=== PATIENT | male | born 1980 | race Caucasian/White ===

== ENCOUNTER 2020-04-21 18:40 | Observation (INO) | payer MEDICARE, OTHER ==
[2020-04-21] MEDS ORDERED: BABY ASPIRIN 81 MG CHEW PO ONE (18:52)
--- NOTE | 2020-04-21 18:52 | ERPHSYRPT ---
- History of Present Illness Time Seen by Provider: 04/21/20 18:47 Historian: patient Exam Limitations: no limitations Patient Subjective Stated Complaint: Chest Discomfort Physician History: Patient states that he has a history of dilated cardiomyopathy since 2006. His last ejection fraction was a 45%. Patient taken to the ER for intermittent chest pain since yesterday evening. No shortness of breath or nausea vomiting or fever chills. Timing/Duration: yesterday Activities at Onset: none Quality: aching Location: substernal Chest Pain Radiation: no radiation Severity of Pain-Max: moderate Severity of Pain-Current: mild Modifying Factors: Improves With: nothing Associated Symptoms: denies symptoms Prior Chest Pain/Cardiac Workup: angina Nitro Today/Relief: no nitro taken today Aspirin Treatment Today: 81 mg x 1 Allergies/Adverse Reactions: penicillin G Allergy (Intermediate, Verified 04/21/20 19:11) Home Medications: Aspirin 81 gm Chew [Baby Aspirin 81 mg Chew] 81 mg PO DAILY 06/11/14 [History] Carvedilol [Coreg] 25 mg PO BID 06/11/14 [History] Digoxin [Lanoxin] 125 mcg PO DAILY 06/11/14 [History] Furosemide [Lasix] 20 mg PO DAILY 06/11/14 [History] Losartan Potassium 50 mg PO DAILY 06/11/14 [History] Potassium Chloride 20 Meq [Klor-Con 20 MEQ] 20 meq PO BID 06/11/14 [History] Pravastatin Sodium 10 mg PO DAILY 06/11/14 [History] Amlodipine Besylate 2.5 mg PO DAILY 04/21/20 [History] Hx Tetanus, Diphtheria Vaccination/Date Given: Yes Hx Influenza Vaccination/Date Given: No Hx Pneumococcal Vaccination/Date Given: No Travel Risk - International Travel Have you traveled outside of the country in past 3 weeks: No - Coronavirus Screening Are you exhibiting any of the following symptoms?: No - Review of Systems Constitutional: No Fever, No Chills Eyes: No Symptoms Ears, Nose, & Throat: No Symptoms Respiratory: No Cough, No Dyspnea Cardiac: Chest Pain, No Edema, No Syncope Abdominal/Gastrointestinal: No Abdominal Pain, No Nausea, No Vomiting, No Diarrhea Genitourinary Symptoms: No Dysuria Musculoskeletal: No Back Pain, No Neck Pain Skin: No Rash Neurological: No Dizziness, No Focal Weakness, No Sensory Changes Psychological: No Symptoms Endocrine: No Symptoms All Other Systems: Reviewed and Negative - Past Medical History Pertinent Past Medical History: Yes Neurological History: Migraines ENT History: No Pertinent History Cardiac History: Congestive Heart Failure, High Cholesterol, Other Respiratory History: No Pertinent History Endocrine Medical History: No Pertinent History Musculoskeletal History: No Pertinent History GI Medical History: No Pertinent History History: No Pertinent History Psycho-Social History: Depression Male Reproductive Disorders: No Pertinent History Other Medical History: CARDIOPATHY FROM VIRUS 2005 - Past Surgical History Past Surgical History: Yes Neuro Surgical History: No Pertinent History Cardiac: Internal Defibrillator, Pacemaker Respiratory: No Pertinent History Gastrointestinal: No Pertinent History Genitourinary: No Pertinent History Musculoskeletal: No Pertinent History Male Surgical History: No Pertinent History - Social History Smoking Status: Never smoker Exposure to second hand smoke: No Drug Use: none Patient Lives Alone: No - Nursing Vital Signs Nursing Vital Signs: Initial Vital Signs Temperature 98.8 F 04/21/20 18:59 Pulse Rate 70 04/21/20 18:59 Respiratory Rate 14 04/21/20 18:59 Blood Pressure 176/107 04/21/20 18:59 O2 Sat by Pulse Oximetry 96 04/21/20 18:59 Pain Scale Pain Intensity 3 - Physical Exam General Appearance: no apparent distress, alert Eye Exam: PERRL/EOMI, eyes nml inspection Ears, Nose, Throat Exam: normal ENT inspection, moist mucous membranes Neck Exam: normal inspection, non-tender, supple, full range of motion Respiratory Exam: normal breath sounds, lungs clear, No respiratory distress Cardiovascular Exam: regular rate/rhythm, normal heart sounds Gastrointestinal/Abdomen Exam: soft, No tenderness, No mass Back Exam: normal inspection, No CVA tenderness, No vertebral tenderness Extremity Exam: normal inspection, normal range of motion Neurologic Exam: alert, oriented x 3, cooperative, normal mood/affect, sensation nml, No motor deficits Skin Exam: normal color, warm, dry - Course Nursing assessment & vital signs reviewed: Yes EKG Interpreted by Me: RATE (70), Other (Paced Rhythm) - Radiology Exams Chest X-ray Interpretation: Interpreted by me, No Pneumonia, No Pneumothorax, Other (Nothing acute. Pacemaker in place) Ordered Tests: Active Orders 24 hr Category Date Time Status Package Wrapper STAT Care 04/21/20 18:54 Active EKG-ER Only STAT Care 04/21/20 18:52 Active IV Insertion STAT Care 04/21/20 18:52 Active CHEST 1 VIEW (PORTABLE) Stat Exams 04/21/20 18:54 Taken CBC W DIFF Stat Lab 04/21/20 19:00 Completed CK-Creatinine Phosphokinase Stat Lab 04/21/20 19:00 Completed CMP Stat Lab 04/21/20 19:00 Completed Manual Differential NC Stat Lab 04/21/20 19:00 Completed NT PRO BNP Stat Lab 04/21/20 19:00 Completed PROTIME WITH INR Stat Lab 04/21/20 19:00 Completed PTT Stat Lab 04/21/20 19:00 Completed TROPONIN Q3H Lab 04/21/20 19:00 Completed Transfer Order Routine Transfer 04/21/20 Ordered Medication Summary Discontinued Medications Generic Name Dose Route Start Last Admin Trade Name Freq PRN Reason Stop Dose Admin Acetaminophen 500 mg 04/21/20 20:18 04/21/20 20:23 Tylenol Extra Strength 500 Mg PO 04/21/20 20:19 500 mg STAT STA Administration Acetaminophen Confirm 04/21/20 20:22 Tylenol Extra Strength 500 Mg Administered 04/21/20 20:23 Dose 500 mg .ROUTE .STK-MED ONE Aspirin 162 mg 04/21/20 18:52 04/21/20 19:11 Baby Aspirin 81 Mg Chew PO 04/21/20 18:53 162 mg STAT ONE Administration Nitroglycerin 1 gm 04/21/20 19:14 04/21/20 19:28 Nitro-Bid 2% Ud Packets TOP 04/21/20 19:15 1 gm STAT ONE Administration Nitroglycerin Confirm 04/21/20 19:27 Nitro-Bid 2% Ud Packets Administered 04/21/20 19:28 Dose 1 gm .ROUTE .STK-MED ONE Lab/Rad Data: Laboratory Result Diagrams 04/21/20 19:00 04/21/20 19:00 Laboratory Results 04/21/20 04/21/20 04/21/20 Range/Units 19:00 19:00 19:00 WBC (4.0-10.5) K/mm3 RBC (4.1-5.6) M/mm3 Hgb (12.5-18.0) gm/dl Hct (42-50) % MCV (78-100) fl MCH (26-32) pg MCHC (32-36) g/dl RDW (11.5-14.0) % Plt Count (150-450) K/mm3 MPV (7.5-11.0) fl PT 14.1 H (8.83-12.87) SECONDS INR 1.25 (0.8-3.0) APTT 31.7 (24.1-36.1) SECONDS Sodium 136 L (137-145) mmol/L Potassium 3.5 (3.5-5.1) mmol/L Chloride 102 (98-107) mmol/L Carbon Dioxide 28 (22-30) mmol/L Anion Gap 10.2 (5-15) MEQ/L BUN 18 (9-20) mg/dL Creatinine 1.11 (0.66-1.25) mg/dL Estimated GFR > 60.0 ML/MIN Glucose 106 (74-106) mg/dL Calcium 9.3 (8.4-10.2) mg/dL Total Bilirubin 0.40 (0.2-1.3) mg/dL AST 25 (17-59) U/L ALT 39 (0-50) U/L Alkaline Phosphatase 136 H (38-126) U/L Creatine Kinase 117 (55-170) U/L Troponin I < 0.012 (0.000-0.034) ng/mL NT-Pro-B Natriuret Pep 76.0 (0-450) pg/mL Serum Total Protein 7.7 (6.3-8.2) g/dL Albumin 4.2 (3.5-5.0) g/dL 04/21/20 Range/Units 19:00 WBC 11.2 H (4.0-10.5) K/mm3 RBC 4.95 (4.1-5.6) M/mm3 Hgb 15.7 (12.5-18.0) gm/dl Hct 46.8 (42-50) % MCV 94.5 (78-100) fl MCH 31.7 (26-32) pg MCHC 33.5 (32-36) g/dl RDW 13.3 (11.5-14.0) % Plt Count 307 (150-450) K/mm3 MPV 9.8 (7.5-11.0) fl PT (8.83-12.87) SECONDS INR (0.8-3.0) APTT (24.1-36.1) SECONDS Sodium (137-145) mmol/L Potassium (3.5-5.1) mmol/L Chloride (98-107) mmol/L Carbon Dioxide (22-30) mmol/L Anion Gap (5-15) MEQ/L BUN (9-20) mg/dL Creatinine (0.66-1.25) mg/dL Estimated GFR ML/MIN Glucose (74-106) mg/dL Calcium (8.4-10.2) mg/dL Total Bilirubin (0.2-1.3) mg/dL AST (17-59) U/L ALT (0-50) U/L Alkaline Phosphatase (38-126) U/L Creatine Kinase (55-170) U/L Troponin I (0.000-0.034) ng/mL NT-Pro-B Natriuret Pep (0-450) pg/mL Serum Total Protein (6.3-8.2) g/dL Albumin (3.5-5.0) g/dL - Progress Progress: improved Air Movement: good Blood Culture(s) Obtained: No Antibiotics given: No Discussed with : Vijay Will see patient in: hospital (observation) Counseled pt/family regarding: diagnosis - Departure Departure Disposition: Observation Clinical Impression: Chest pain Condition: Good Critical Care Time: No Referrals: BLUE ROMERO NP [Primary Care Provider] -
[2020-04-21 19:12] LABS: Hematocrit 46.8 % (42-50); Hemoglobin 15.7 gm/dl (12.5-18.0); Mean Cell Volume 94.5 fl (78-100); Mean Corpuscular Hemoglobin 31.7 pg (26-32); Mean Corpuscular Hgb Concent. 33.5 g/dl (32-36); Mean Platelet Volume 9.8 fl (7.5-11.0); Platelet Count 307 K/mm3 (150-450); Red Blood Count 4.95 M/mm3 (4.1-5.6); Red Cell Distribution Width 13.3 % (11.5-14.0); White Blood Count 11.2 K/mm3 (4.0-10.5)
[2020-04-21 19:14] LABS: INR 1.25 (0.8-3.0); PROTIME 14.1 SECONDS (8.83-12.87)
[2020-04-21] MEDS ORDERED: NITRO-BID 2% UD PACKETS TOP ONE (19:14)
[2020-04-21 19:16] LABS: PTT 31.7 SECONDS (24.1-36.1)
[2020-04-21] MEDS ORDERED: NITRO-BID 2% UD PACKETS ONE (19:27)
[2020-04-21 19:28] LABS: ALBUMIN 4.2 g/dL (3.5-5.0); ALKALINE PHOSPHATASE 136 U/L (38-126); ANION GAP 10.2 MEQ/L (5-15); BLOOD UREA NITROGEN 18 mg/dL (9-20); CHLORIDE 102 mmol/L (98-107); CK-Creatinine Phosphokinase 117 U/L (55-170); Calcium 9.3 mg/dL (8.4-10.2); Carbon Dioxide 28 mmol/L (22-30); Creatinine 1 1.11 mg/dL (0.66-1.25); Glucose 106 mg/dL (74-106); Potassium 3.5 mmol/L (3.5-5.1); SGOT/AST 25 U/L (17-59); SGPT/ALT 39 U/L (0-50); SODIUM 136 mmol/L (137-145); Total Protein 7.7 g/dL (6.3-8.2)
[2020-04-21] MEDS ORDERED: TYLENOL EXTRA STRENGTH 500 MG PO STA (20:18)
[2020-04-21] MEDS ORDERED: TYLENOL EXTRA STRENGTH 500 MG ONE (20:22)
[2020-04-21] MEDS ORDERED: APRESOLINE 20 MG/ML INJ IV PRN (21:13)
[2020-04-21] MEDS: COREG 12.5 MG PO SCH (21:55)
[2020-04-21] MEDS ORDERED: Cozaar 50 MG PO SCH (22:00)
[2020-04-21] MEDS ORDERED: Zocor 10MG PO SCH (22:00)
[2020-04-21 23:19] LABS: Eosinophil 2 % (0.00-3.0); Lymphocytes 37 % (24-44); Monocyte 1 % (0.0-12.0); Neutrophils 60 % (36.-66.); Total Cells Counted 100
[2020-04-21 23:20] LABS: Platelet Estimate NORMAL (NORMAL)
[2020-04-22] MEDS: TYLENOL 325 MG PO PRN ×2 (03:33→08:09)
--- NOTE | 2020-04-22 08:29 | PCM.HP ---
History of Present Illness - Chief Complaint Chief Complaint: Chest Pain History of Present Illness: is a 39 year old male with a known history of cardiomyopathy, follows with Dr Lawson, states he was disabled in the past, released to return to work a little over 1 year ago when EF had improved to 45%. He awoke very early yesterday morning from sleep with headache and burning sensation in his chest, he also felt nauseated. his bp was elevated on arrival to the ER, he is currently pain free, has a headache from nitro paste he believes. has no history of prior stenting, last heart cath was quite a while back but he is unable to further elaborate. no swelling in the legs, no pnd or orthopnea. - Review of Systems Constitutional: No Fever, No Chills Respiratory: No Cough, No Short Of Breath Cardiac: Chest Pain (resolved) Abdominal/Gastrointestinal: Nausea (resolved) Skin: No Rash Neurological: No Dizziness, No Focal Weakness, No Sensory Changes All Other Systems: Reviewed and Negative Medications & Allergies Home Medications: Home Medication List Aspirin 81 gm Chew [Baby Aspirin 81 mg Chew] 81 mg PO DAILY 06/11/14 [History Confirmed 04/21/20] Carvedilol [Coreg] 25 mg PO BID 06/11/14 [History Confirmed 04/21/20] Digoxin [Lanoxin] 125 mcg PO DAILY 06/11/14 [History Confirmed 04/21/20] Furosemide [Lasix] 20 mg PO DAILY 06/11/14 [History Confirmed 04/21/20] Losartan Potassium 50 mg PO HS 06/11/14 [History Confirmed 04/21/20] Potassium Chloride 20 Meq [Klor-Con 20 MEQ] 20 meq PO DAILY 06/11/14 [History Confirmed 04/21/20] Pravastatin Sodium 10 mg PO HS 06/11/14 [History Confirmed 04/21/20] Amlodipine Besylate 2.5 mg PO DAILY 04/21/20 [History Confirmed 04/21/20] Allergies/Adverse Reactions: Allergies Allergy/AdvReac Type Severity Reaction Status Date / Time penicillin G Allergy Intermediate Verified 04/21/20 19:11 - Past Medical History Past Medical History: Yes Neurological History: Migraines ENT History: No Pertinent History Cardiac History: Congestive Heart Failure, High Cholesterol, Other Respiratory History: No Pertinent History Endocrine Medical History: No Pertinent History Musculoskelatal History: No Pertinent History GI Medical History: No Pertinent History History: No Pertinent History Pyscho-Social History: Depression Male Reproductive Disorders: No Pertinent History Comment: CARDIOPATHY FROM VIRUS 2005 - Past Surgical History Past Surgical History: Yes Neuro Surgical History: No Pertinent History Cardiac History: Internal Defibrillator, Pacemaker Respiratory Surgery: No Pertinent History GI Surgical History: No Pertinent History Genitourinary Surgical Hx: No Pertinent History Musculskeletal Surgical Hx: No Pertinent History Male Surgical History: No Pertinent History - Social History Smoking Status: Never smoker Exposure to second hand smoke: No Alcohol: Daily Drug Use: none - Physical Exam Vital Signs: Vital Signs - 24 hr Temp Pulse Resp BP Pulse Ox 04/22/20 07:18 98.6 F 70 18 103/55 94 L 04/22/20 04:05 97.7 F 71 20 106/55 94 L 04/21/20 23:44 98.4 F 79 18 105/54 97 04/21/20 20:40 98.7 F 72 22 147/81 96 04/21/20 20:00 70 14 127/89 95 04/21/20 19:44 71 12 151/97 97 04/21/20 18:59 98.8 F 70 14 176/107 96 General Appearance: no apparent distress, obese Neurologic Exam: alert, oriented x 3, cooperative Respiratory Exam: normal breath sounds, lungs clear, No respiratory distress Cardiovascular Exam: regular rate/rhythm, normal heart sounds, normal peripheral pulses Gastrointestinal/Abdomen Exam: soft, normal bowel sounds, No tenderness, No mass Extremity Exam: normal inspection, normal range of motion, pelvis stable Results - Labs Lab/Micro Results: Lab Results-Last 24 Hours 04/21/20 04/21/20 04/21/20 Range/Units 19:00 19:00 19:00 WBC 11.2 H (4.0-10.5) K/mm3 RBC 4.95 (4.1-5.6) M/mm3 Hgb 15.7 (12.5-18.0) gm/dl Hct 46.8 (42-50) % MCV 94.5 (78-100) fl MCH 31.7 (26-32) pg MCHC 33.5 (32-36) g/dl RDW 13.3 (11.5-14.0) % Plt Count 307 (150-450) K/mm3 MPV 9.8 (7.5-11.0) fl Segmented Neutrophils 60 (36.-66.) % Lymphocytes (Manual) 37 (24-44) % Monocytes (Manual) 1 (0.0-12.0) % Eosinophils (Manual) 2 (0.00-3.0) % Platelet Estimate NORMAL (NORMAL) RBC Morphology NORMAL PT 14.1 H (8.83-12.87) SECONDS INR 1.25 (0.8-3.0) APTT 31.7 (24.1-36.1) SECONDS Sodium 136 L (137-145) mmol/L Potassium 3.5 (3.5-5.1) mmol/L Chloride 102 (98-107) mmol/L Carbon Dioxide 28 (22-30) mmol/L Anion Gap 10.2 (5-15) MEQ/L BUN 18 (9-20) mg/dL Creatinine 1.11 (0.66-1.25) mg/dL Estimated GFR > 60.0 ML/MIN Glucose 106 (74-106) mg/dL Calcium 9.3 (8.4-10.2) mg/dL Total Bilirubin 0.40 (0.2-1.3) mg/dL AST 25 (17-59) U/L ALT 39 (0-50) U/L Alkaline Phosphatase 136 H (38-126) U/L Creatine Kinase 117 (55-170) U/L Troponin I (0.000-0.034) ng/mL NT-Pro-B Natriuret Pep 76.0 (0-450) pg/mL Serum Total Protein 7.7 (6.3-8.2) g/dL Albumin 4.2 (3.5-5.0) g/dL 04/21/20 04/21/20 04/21/20 Range/Units 19:00 21:00 23:53 WBC (4.0-10.5) K/mm3 RBC (4.1-5.6) M/mm3 Hgb (12.5-18.0) gm/dl Hct (42-50) % MCV (78-100) fl MCH (26-32) pg MCHC (32-36) g/dl RDW (11.5-14.0) % Plt Count (150-450) K/mm3 MPV (7.5-11.0) fl Segmented Neutrophils (36.-66.) % Lymphocytes (Manual) (24-44) % Monocytes (Manual) (0.0-12.0) % Eosinophils (Manual) (0.00-3.0) % Platelet Estimate (NORMAL) RBC Morphology PT (8.83-12.87) SECONDS INR (0.8-3.0) APTT (24.1-36.1) SECONDS Sodium (137-145) mmol/L Potassium (3.5-5.1) mmol/L Chloride (98-107) mmol/L Carbon Dioxide (22-30) mmol/L Anion Gap (5-15) MEQ/L BUN (9-20) mg/dL Creatinine (0.66-1.25) mg/dL Estimated GFR ML/MIN Glucose (74-106) mg/dL Calcium (8.4-10.2) mg/dL Total Bilirubin (0.2-1.3) mg/dL AST (17-59) U/L ALT (0-50) U/L Alkaline Phosphatase (38-126) U/L Creatine Kinase (55-170) U/L Troponin I < 0.012 < 0.012 < 0.012 (0.000-0.034) ng/mL NT-Pro-B Natriuret Pep (0-450) pg/mL Serum Total Protein (6.3-8.2) g/dL Albumin (3.5-5.0) g/dL - Radiology Impressions Radiology Exams & Impressions: Radiology Procedures Category Date Time Status CHEST 1 VIEW (PORTABLE) Stat Exams 04/21/20 18:54 Taken ECHO W/2D AND DOPPLER [US] Routine Exams 04/22/20 Ordered Assessment/Plan (1) Chest pain Current Visit: Yes Status: Acute Assessment & Plan: PR ruled out, will consult with [facility] regarding disposition. on beta al, arb, bp well controlled and receiving asa and statin therapy. Code(s): R07.9 - CHEST PAIN, UNSPECIFIED (2) Dilated cardiomyopathy Current Visit: Yes Status: Acute Assessment & Plan: echo pending, cardiology consult pending. Code(s): I42.0 - DILATED CARDIOMYOPATHY
--- NOTE | 2020-04-22 08:41 | XRAY ---
Indication: Chest pain. Comparison: July 22, 2016. Portable apical lordotic chest again demonstrates normal heart and lungs with incidental left AICD. Bony thorax intact with mild degenerative changes. No new/acute findings.
[2020-04-22] MEDS: COREG 12.5 MG PO SCH (09:17)
[2020-04-22] MEDS ORDERED: Lanoxin 0.125MG TABLET PO SCH (10:30)
[2020-04-22] MEDS ORDERED: LASIX 20 MG PO SCH (10:30)
[2020-04-22] MEDS ORDERED: ECOTRIN 81 MG PO SCH (10:30)
[2020-04-22] MEDS ORDERED: Klor Con 10 MEQ PO SCH (10:45)
[2020-04-22] MEDS ORDERED: NORVASC 5 MG PO SCH (11:00)
[2020-04-22 11:48] VITALS: O2SAT 96
[2020-04-22 16:20] VITALS: BP 126/67; PULSE 70
--- NOTE | 2020-04-22 17:11 | PCM.DCORD ---
- Discharge Disposition: Home, Self-Care Condition: Good Prescriptions: Continue Aspirin 81 gm Chew [Baby Aspirin 81 mg Chew] 81 mg PO DAILY Losartan Potassium 50 mg PO HS Furosemide [Lasix] 20 mg PO DAILY Carvedilol [Coreg] 25 mg PO BID Pravastatin Sodium 10 mg PO HS Digoxin [Lanoxin] 125 mcg PO DAILY Potassium Chloride 20 Meq [Klor-Con 20 MEQ] 20 meq PO DAILY Amlodipine Besylate 2.5 mg PO DAILY Follow up with: BLUE ROMERO NP [Primary Care Provider] - 1 Week
[2020-04-23] MEDS ORDERED: BABY ASPIRIN 81 MG CHEW PO SCH (10:00)
[2020-04-23] MEDS ORDERED: NON-FORMULARY ITEM (Amlodipine Besylate [Amlodipine Besylate] 2.5 MG) PO SCH (10:00)
[2020-04-23] MEDS ORDERED: NON-FORMULARY ITEM (Potassium Chloride 20 Meq [Klor-Con 20 Meq] 20 MEQ) PO SCH (10:00)
--- NOTE | 2020-04-23 12:07 | ECHO ---
DATE OF PROCEDURE: 04/22/2020 CLINICAL INFORMATION: Chest pain and history of cardiomyopathy. The M-mode 2D, and Doppler echocardiogram including color flow Doppler shows the left ventricle to be at the upper limits of normal being 5.6 cm. There is no thrombus present. The septal wall thickness is increased at 1.3 cm. The left ventricular posterior wall thickness is increased at 1.6 cm. The left ventricular ejection fraction is calculated to be 55%. The contractility of the left ventricle is normal. There is no thrombus noted. The right ventricle is grossly normal. There is suggestion of a right ventricular electrode present. The left atrium is normal at 3.5 cm. The interatrial septum is intact. The right atrium is normal. The aortic valve opens well and is trileaflet. There is no aortic regurgitation. There is mitral valve leaflet thickening associated with mild mitral regurgitation. There is mild tricuspid regurgitation. The right ventricular systolic pressure is normal at 27 mm of Mercury. The pulmonic valve is not well visualized. The aortic root is normal at 3.8 cm. There is no pericardial effusion present. IMPRESSION: 1) NORMAL CONTRACTILITY OF THE LEFT VENTRICLE. 2) MODERATE ASYMMETRIC LEFT VENTRICULAR HYPERTROPHY. 3) MILD MITRAL REGURGITATION. 4) MILD TRICUSPID REGURGITATION. 5) NORMAL RIGHT VENTRICULAR SYSTOLIC PRESSURE. 6) POSSIBLE RIGHT VENTRICULAR ELECTRODE.
== END 2020-04-22 17:42 | disposition home or self-care (01) ==
LOC: ED 18:40 → MED SURG 20:34
PROVIDERS: ADMIT Family Medicine; ATTEND Family Medicine
DX: R07.9 Chest pain, unspecified (principal); I42.0 Dilated cardiomyopathy; R51 Headache; E78.00 Pure hypercholesterolemia, unspecified; Z79.899 Other long term (current) drug therapy
CPT/HCPCS: 36000; 36415; 71045; 80053; 82550; 83880; 84484; 85025; 85610; 85730; 93005; 93041; 93268; 93306; 95806; 99285; G0378; Q3014; A9270-GY; G0398

== ENCOUNTER 2021-05-15 13:44 | Observation (INO) | payer BC, OTHER ==
[2021-05-15] MEDS ORDERED: Sodium Chloride 0.9% 1000 ML 1,000 ML IV STA (14:00)
[2021-05-15] MEDS ORDERED: Sodium Chloride 0.9% 1000 ML 1,000 ML ONE (14:23)
--- NOTE | 2021-05-15 14:26 | XRAY ---
Indication: Chest pain. Comparison: April 21, 2020. Portable chest remains clear. Heart now borderline enlarged again with left AICD. Bony thorax intact with mild degenerative changes. No acute findings.
[2021-05-15 14:38] LABS: Hematocrit 47.3 % (42-50); Hemoglobin 15.7 gm/dl (12.5-18.0); Mean Cell Volume 92.9 fl (78-100); Mean Corpuscular Hemoglobin 30.8 pg (26-32); Mean Corpuscular Hgb Concent. 33.2 g/dl (32-36); Mean Platelet Volume 9.9 fl (7.5-11.0); Platelet Count 327 K/mm3 (150-450); Red Blood Count 5.09 M/mm3 (4.1-5.6); Red Cell Distribution Width 13.6 % (11.5-14.0); White Blood Count 12.5 K/mm3 (4.0-10.5)
--- NOTE | 2021-05-15 14:38 | ERPHSYRPT ---
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 reports she noticed the pt attempting to urinate in the closet after fall and was extremely disoriented. A&Ox3 on arrival. flat affect. denies pain. is on bl ood thinners and unsure if he lost consciousness during fall but is confused on events following fall. Physician History: Patient is a 41-year-old male presents to our ED for evaluation of confusion and fall. Patient states he went to work early this morning. Patient came out of work. Patient had a few beers and went to sleep at approximately 10 AM. Just after 1 PM heard a loud fall and found patient on the floor in his bedroom near the bed. Patient was confused. Patient presents to our ED at this time. Patient has a history of cardiomyopathy. He currently has a pacemaker. Patient states that his blood pressure has been running high. 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 Patient currently feels well. He denies pain. No neck pain. Cervical spine cleared clinically. Symptoms are moderate in intensity. No specific worsening improving factors. at bedside. They voiced no other complaints or concerns at this time. Timing/Duration: today Severity: moderate Modifying Factors: Improves With: nothing Associated Symptoms: No nausea, No vomiting, No heartburn, No diaphoresis, No chest pain, No headaches, No seizure, No weakness Allergies/Adverse Reactions: penicillin G Allergy (Intermediate, Verified 04/21/20 19:11) Home Medications: Aspirin 81 gm Chew [Baby Aspirin 81 mg Chew] 81 mg PO DAILY 06/11/14 [History] Carvedilol [Coreg] 25 mg PO BID 06/11/14 [History] Digoxin [Lanoxin] 125 mcg PO DAILY 06/11/14 [History] Furosemide [Lasix] 40 mg PO DAILY 06/11/14 [History] Losartan Potassium 100 mg PO HS 06/11/14 [History] Potassium Chloride 20 Meq [Klor-Con 20 MEQ] 20 meq PO DAILY 06/11/14 [History] Pravastatin Sodium 40 mg PO HS 06/11/14 [History] Paroxetine HCl 20 mg [Paxil 20 MG] 20 mg PO DAILY 05/15/21 [History] Hx Tetanus, Diphtheria Vaccination/Date Given: Yes Hx Influenza Vaccination/Date Given: No Hx Pneumococcal Vaccination/Date Given: No Immunizations Up to Date: No Travel Risk - International Travel Have you traveled outside of the country in past 3 weeks: No - Coronavirus Screening Are you exhibiting any of the following symptoms?: No Close contact with a COVID-19 positive Pt in past 14-21 Days: No - Vaccine Status Have you recieved a Covid-19 vaccination: Yes [employer]: Moderna - Vaccination Dates Date of 2cond Vaccination (if applicable): unkn - Review of Systems Constitutional: No Symptoms, No Fever, No Chills Eyes: No Symptoms Ears, Nose, & Throat: No Symptoms Respiratory: No Symptoms, No Cough, No Dyspnea Cardiac: No Symptoms, No Chest Pain, No Edema, No Syncope Abdominal/Gastrointestinal: No Symptoms, No Abdominal Pain, No Nausea, No Vomiting, No Diarrhea Genitourinary Symptoms: No Symptoms, No Dysuria Musculoskeletal: No Symptoms, No Back Pain, No Neck Pain Skin: No Symptoms, No Rash Neurological: No Symptoms, No Dizziness, No Focal Weakness, No Sensory Changes Psychological: No Symptoms Endocrine: No Symptoms Hematologic/Lymphatic: No Symptoms Immunological/Allergic: No Symptoms All Other Systems: Reviewed and Negative - Past Medical History Pertinent Past Medical History: Yes Neurological History: Migraines ENT History: No Pertinent History Cardiac History: Congestive Heart Failure, High Cholesterol, Other Respiratory History: No Pertinent History Endocrine Medical History: No Pertinent History Musculoskeletal History: No Pertinent History GI Medical History: No Pertinent History History: No Pertinent History Psycho-Social History: Depression Male Reproductive Disorders: No Pertinent History Other Medical History: CARDIOPATHY FROM VIRUS 2005 - Past Surgical History Past Surgical History: Yes Neuro Surgical History: No Pertinent History Cardiac: Internal Defibrillator, Pacemaker Respiratory: No Pertinent History Gastrointestinal: No Pertinent History Genitourinary: No Pertinent History Musculoskeletal: No Pertinent History Male Surgical History: No Pertinent History - Social History Smoking Status: Never smoker Exposure to second hand smoke: No Drug Use: none Patient Lives Alone: No - Nursing Vital Signs Nursing Vital Signs: Initial Vital Signs Temperature 98.0 F 05/15/21 13:47 Pulse Rate 70 05/15/21 13:47 Respiratory Rate 15 05/15/21 13:47 Blood Pressure 137/94 05/15/21 13:47 O2 Sat by Pulse Oximetry 94 L 05/15/21 13:47 Pain Scale Pain Intensity 0 - Physical Exam General Appearance: no apparent distress, alert Eye Exam: PERRL/EOMI, eyes nml inspection Ears, Nose, Throat Exam: normal ENT inspection, TMs normal, pharynx normal, moist mucous membranes Neck Exam: normal inspection, non-tender, supple, full range of motion Respiratory Exam: normal breath sounds, lungs clear, No respiratory distress Cardiovascular Exam: regular rate/rhythm, normal heart sounds, normal peripheral pulses Gastrointestinal/Abdomen Exam: soft, normal bowel sounds, No tenderness, No mass Back Exam: normal inspection, normal range of motion, No CVA tenderness, No vertebral tenderness Extremity Exam: normal inspection, normal range of motion, pelvis stable Neurologic Exam: alert, oriented x 3, cooperative, normal mood/affect, nml cerebellar function, nml station & gait, sensation nml, No motor deficits Skin Exam: normal color, warm, dry, No rash Lymphatic Exam: No adenopathy SpO2 Interpretation: normal SpO2: 95 O2 Delivery: Room Air - Course Nursing assessment & vital signs reviewed: Yes EKG Interpreted by Me: RATE (70 biventricular paced rhythm.) - Radiology Exams Chest X-ray Interpretation: Teleradiologist Report (Cardiomegaly otherwise unre markable chest x-ray) - CT Exams Head CT Interpretation: Tele-radiologist Report (No acute intracranial process. 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 Care 05/15/21 14:01 Active Clean Catch Urine Specimen STAT Care 05/15/21 14:00 Active EKG-ER Only STAT Care 05/15/21 14:00 Active IV Insertion STAT Care 05/15/21 14:00 Active Pulse Oximetry (ED) STAT Care 05/15/21 14:00 Active CHEST 1 VIEW (PORTABLE) Stat Exams 05/15/21 14:[address] ANGIOGRAPHY NECK [CT] Routine Exams 05/15/21 14:41 Completed CTA HEAD W AND/OR WO CONTRAST [CT] Stat Exams 05/15/21 14:34 Completed HEAD WITHOUT CONTRAST [CT] Routine Exams 05/15/21 16:19 Taken CBC W DIFF Stat Lab 05/15/21 14:15 Completed CMP Stat Lab 05/15/21 14:15 Completed ETHYL ALCOHOL Stat Lab 05/15/21 14:15 Completed MAGNESIUM Stat Lab 05/15/21 14:15 Completed Manual Differential NC Stat Lab 05/15/21 14:15 Completed TROPONIN Q3H Lab 05/15/21 14:15 Completed TROPONIN Q3H Lab 05/15/21 18:12 Completed TROPONIN Q3H Lab 05/15/21 20:36 Received TROPONIN Q3H Lab 05/15/21 23:15 Ordered TROPONIN Q3H Lab 05/16/21 02:15 Ordered UA W/RFX UR CULTURE Stat Lab 05/15/21 16:15 Completed Urine Triage Profile Stat Lab 05/15/21 16:15 Completed Transfer Order Routine Transfer 05/15/21 Ordered Medication Summary Discontinued Medications Generic Name Dose Route Start Last Admin Trade Name Freq PRN Reason Stop Dose Admin Sodium Chloride 1,000 mls @ 999 mls/hr 05/15/21 14:00 05/15/21 15:26 Sodium Chloride 0.9% 1000 Ml IV 05/15/21 15:00 Infused .Q1H1M STA Infusion Sodium Chloride Confirm 05/15/21 14:23 Sodium Chloride 0.9% 1000 Ml Administered 05/15/21 14:24 Dose 1,000 mls @ ud .ROUTE .STK-MED ONE Lab/Rad Data: Laboratory Result Diagrams 05/15/21 14:15 05/15/21 14:15 Laboratory Results 05/15/21 05/15/21 05/15/21 Range/Units 19:41 18:12 16:15 WBC (4.0-10.5) K/mm3 RBC (4.1-5.6) M/mm3 Hgb (12.5-18.0) gm/dl Hct (42-50) % MCV (78-100) fl MCH (26-32) pg MCHC (32-36) g/dl RDW (11.5-14.0) % Plt Count (150-450) K/mm3 MPV (7.5-11.0) fl Segmented Neutrophils (36.-66.) % Band Neutrophils (0.0-2.0) % Lymphocytes (Manual) (24-44) % Monocytes (Manual) (0.0-12.0) % Eosinophils (Manual) (0.00-3.0) % Metamyelocytes % Atypical Lymphocytes % Platelet Estimate (NORMAL) RBC Morphology Sodium (137-145) mmol/L Potassium (3.5-5.1) mmol/L Chloride (98-107) mmol/L Carbon Dioxide (22-30) mmol/L Anion Gap (5-15) MEQ/L BUN (9-20) mg/dL Creatinine (0.66-1.25) mg/dL Estimated GFR ML/MIN Glucose (74-106) mg/dL Calcium (8.4-10.2) mg/dL Magnesium (1.6-2.3) mg/dL Total Bilirubin (0.2-1.3) mg/dL AST (17-59) U/L ALT (0-50) U/L Alkaline Phosphatase (38-126) U/L Troponin I < 0.012 (0.000-0.034) ng/mL Serum Total Protein (6.3-8.2) g/dL Albumin (3.5-5.0) g/dL Urine Color (YELLOW) Urine Appearance (CLEAR) Urine pH (5-6) Ur Specific Allison (1.005-1.025) Urine Protein (Negative) Urine Ketones (NEGATIVE) Urine Blood (0-5) Vishal/ul Urine Nitrite (NEGATIVE) Urine Bilirubin (NEGATIVE) Urine Urobilinogen (0-1) mg/dL Ur Leukocyte Esterase (NEGATIVE) Urine WBC (Auto) (0-5) /HPF Urine RBC (Auto) (0-2) /HPF Urine Culture Reflexed (NO) Urine Glucose (NEGATIVE) mg/dL Urine Opiates Level NEGATIVE (NEGATIVE) Ur Methadone NEGATIVE (NEGATIVE) Urine Barbiturates NEGATIVE (NEGATIVE) Ur Phencyclidine (PCP) NEGATIVE (NEGATIVE) Urine Amphetamine NEGATIVE (NEGATIVE) U Benzodiazepine Level NEGATIVE (NEGATIVE) Urine Cocaine NEGATIVE (NEGATIVE) Urine Marijuana (THC) NEGATIVE (NEGATIVE) Ethyl Alcohol (0-10) mg/dL SARS-CoV-2 (PCR) NEGATIVE (NEGATIVE) 05/15/21 05/15/21 05/15/21 Range/Units 16:15 14:15 14:15 WBC (4.0-10.5) K/mm3 RBC (4.1-5.6) M/mm3 Hgb (12.5-18.0) gm/dl Hct (42-50) % MCV (78-100) fl MCH (26-32) pg MCHC (32-36) g/dl RDW (11.5-14.0) % Plt Count (150-450) K/mm3 MPV (7.5-11.0) fl Segmented Neutrophils (36.-66.) % Band Neutrophils (0.0-2.0) % Lymphocytes (Manual) (24-44) % Monocytes (Manual) (0.0-12.0) % Eosinophils (Manual) (0.00-3.0) % Metamyelocytes % Atypical Lymphocytes % Platelet Estimate (NORMAL) RBC Morphology Sodium 144 (137-145) mmol/L Potassium 4.1 (3.5-5.1) mmol/L Chloride 108 H (98-107) mmol/L Carbon Dioxide 22 (22-30) mmol/L Anion Gap 18.5 H (5-15) MEQ/L BUN 17 (9-20) mg/dL Creatinine 0.98 (0.66-1.25) mg/dL Estimated GFR > 60.0 ML/MIN Glucose 89 (74-106) mg/dL Calcium 9.3 (8.4-10.2) mg/dL Magnesium 2.5 H (1.6-2.3) mg/dL Total Bilirubin 0.40 (0.2-1.3) mg/dL AST 30 (17-59) U/L ALT 41 (0-50) U/L Alkaline Phosphatase 98 (38-126) U/L Troponin I < 0.012 (0.000-0.034) ng/mL Serum Total Protein 8.2 (6.3-8.2) g/dL Albumin 4.6 (3.5-5.0) g/dL Urine Color STRAW (YELLOW) Urine Appearance CLEAR (CLEAR) Urine pH 6.0 (5-6) Ur Specific Allison 1.023 (1.005-1.025) Urine Protein NEGATIVE (Negative) Urine Ketones NEGATIVE (NEGATIVE) Urine Blood NEGATIVE (0-5) Vishal/ul Urine Nitrite NEGATIVE (NEGATIVE) Urine Bilirubin NEGATIVE (NEGATIVE) Urine Urobilinogen NEGATIVE (0-1) mg/dL Ur Leukocyte Esterase NEGATIVE (NEGATIVE) Urine WBC (Auto) NONE (0-5) /HPF Urine RBC (Auto) NONE (0-2) /HPF Urine Culture Reflexed NO (NO) Urine Glucose NEGATIVE (NEGATIVE) mg/dL Urine Opiates Level (NEGATIVE) Ur Methadone (NEGATIVE) Urine Barbiturates (NEGATIVE) Ur Phencyclidine (PCP) (NEGATIVE) Urine Amphetamine (NEGATIVE) U Benzodiazepine Level (NEGATIVE) Urine Cocaine (NEGATIVE) Urine Marijuana (THC) (NEGATIVE) Ethyl Alcohol 226 H (0-10) mg/dL SARS-CoV-2 (PCR) (NEGATIVE) 05/15/21 Range/Units 14:15 WBC 12.5 H (4.0-10.5) K/mm3 RBC 5.09 (4.1-5.6) M/mm3 Hgb 15.7 (12.5-18.0) gm/dl Hct 47.3 (42-50) % MCV 92.9 (78-100) fl MCH 30.8 (26-32) pg MCHC 33.2 (32-36) g/dl RDW 13.6 (11.5-14.0) % Plt Count 327 (150-450) K/mm3 MPV 9.9 (7.5-11.0) fl Segmented Neutrophils 61 (36.-66.) % Band Neutrophils 1 (0.0-2.0) % Lymphocytes (Manual) 26 (24-44) % Monocytes (Manual) 2 (0.0-12.0) % Eosinophils (Manual) 2 (0.00-3.0) % Metamyelocytes 2 % Atypical Lymphocytes 6 % Platelet Estimate NORMAL (NORMAL) RBC Morphology NORMAL Sodium (137-145) mmol/L Potassium (3.5-5.1) mmol/L Chloride (98-107) mmol/L Carbon Dioxide (22-30) mmol/L Anion Gap (5-15) MEQ/L BUN (9-20) mg/dL Creatinine (0.66-1.25) mg/dL Estimated GFR ML/MIN Glucose (74-106) mg/dL Calcium (8.4-10.2) mg/dL Magnesium (1.6-2.3) mg/dL Total Bilirubin (0.2-1.3) mg/dL AST (17-59) U/L ALT (0-50) U/L Alkaline Phosphatase (38-126) U/L Troponin I (0.000-0.034) ng/mL Serum Total Protein (6.3-8.2) g/dL Albumin (3.5-5.0) g/dL Urine Color (YELLOW) Urine Appearance (CLEAR) Urine pH (5-6) Ur Specific Allison (1.005-1.025) Urine Protein (Negative) Urine Ketones (NEGATIVE) Urine Blood (0-5) Vishal/ul Urine Nitrite (NEGATIVE) Urine Bilirubin (NEGATIVE) Urine Urobilinogen (0-1) mg/dL Ur Leukocyte Esterase (NEGATIVE) Urine WBC (Auto) (0-5) /HPF Urine RBC (Auto) (0-2) /HPF Urine Culture Reflexed (NO) Urine Glucose (NEGATIVE) mg/dL Urine Opiates Level (NEGATIVE) Ur Methadone (NEGATIVE) Urine Barbiturates (NEGATIVE) Ur Phencyclidine (PCP) (NEGATIVE) Urine Amphetamine (NEGATIVE) U Benzodiazepine Level (NEGATIVE) Urine Cocaine (NEGATIVE) Urine Marijuana (THC) (NEGATIVE) Ethyl Alcohol (0-10) mg/dL SARS-CoV-2 (PCR) (NEGATIVE) - Progress Progress: improved Progress Note: After further discussion with and patient. Patient apparently stepped out of bed and syncopized. Patient does not recall any of the details. There is alcohol on patient system. The patient states he was not drunk. Patient only drank 3 beers. It is unclear why patient had a syncopal episode. We will admit for syncope. 05/15/21 18:49 Covid test negative. Case discussed with Dr. Wright who accepts admission to observation. Plan of care discussed with patient. He agrees to admission [facility] for further evaluation and treatment. Portions of this note were created with voice recognition technology. There may be grammatical, spelling, punctuation or sound alike errors 05/15/21 20:43 Discussed with : Gil Will see patient in: hospital (observation) Counseled pt/family regarding: lab results, diagnosis, rad results - Departure Departure Disposition: Observation Clinical Impression: Cardiomegaly, Syncope and collapse, Alcohol intoxication Condition: Stable Critical Care Time: No Referrals: BLUE ROMERO NP [Primary Care Provider] -
[2021-05-15 14:52] LABS: ALBUMIN 4.6 g/dL (3.5-5.0); ALKALINE PHOSPHATASE 98 U/L (38-126); ANION GAP 18.5 MEQ/L (5-15); BLOOD UREA NITROGEN 17 mg/dL (9-20); CHLORIDE 108 mmol/L (98-107); Calcium 9.3 mg/dL (8.4-10.2); Carbon Dioxide 22 mmol/L (22-30); Creatinine 1 0.98 mg/dL (0.66-1.25); EST GLOMERULAR FILTRATION RATE > 60.0 ML/MIN; ETHYL ALCOHOL 226 mg/dL (0-10); Glucose 89 mg/dL (74-106); MAGNESIUM 2.5 mg/dL (1.6-2.3); Potassium 4.1 mmol/L (3.5-5.1); SGOT/AST 30 U/L (17-59); SGPT/ALT 41 U/L (0-50); SODIUM 144 mmol/L (137-145); Total Protein 8.2 g/dL (6.3-8.2)
--- NOTE | 2021-05-15 16:13 | XRAY ---
Indication: Stroke. Multiple contiguous axial images obtained through the head without contrast. Then conventional contrast enhanced CTA head performed using 100 cc Isovue 370 contrast. Two-dimensional sagittal and coronal reformatted images obtained. Additional 3-dimensional reformatted images obtained using a separate workstation. Comparison: None Normal appearing brain parenchyma, ventricles, and bony calvarium. Visualized paranasal sinuses and mastoid air cells are clear. Normal CTA appearance to the distal internal carotid arteries, anterior cerebral, and middle cerebral arteries bilaterally. Also normal CTA appearance to the basilar, posterior cerebral, and superior cerebral arteries bilaterally. Venous drainage/sinuses are unremarkable. No abnormal enhancing intra-or extra-axial mass. Impression: 1. Normal CT head without contrast exam. 2. Normal CTA head with contrast exam.
--- NOTE | 2021-05-15 16:14 | XRAY ---
Indication: Stroke. Conventional contrast enhanced CTA neck performed using 100 cc Isovue 370 contrast. Two-dimensional sagittal and coronal reformatted images obtained. Additional 3-dimensional reformatted images obtained using a separate workstation. Comparison: None Visualized aortic arch is normal in course and caliber without aneurysm/dissection. Normal branching right brachiocephalic, left common carotid, and left subclavian arteries. Normal CTA appearance to the common carotid, carotid bulb, internal carotid, and internal carotid arteries bilaterally. Vertebral arteries are bilaterally patent with the right larger in caliber. Specifically no focal stricture, obstruction, or AV malformation. Visualized noncontrasted soft tissues demonstrates a few subcentimeter cervical and submandibular lymph nodes bilaterally. No pathologic lymphadenopathy. Thyroid homogeneous. Supra and infraglottic airway widely patent. Normal epiglottis. Cervical spine intact with minimal C5-C7 degenerative endplate spurring anteriorly. Lung apices are clear. CTA head reported separately. Impression: Normal CTA neck.
[2021-05-15 16:46] LABS: Appearance CLEAR (CLEAR); Bilirubin NEGATIVE (NEGATIVE); Blood NEGATIVE Ery/ul (0-5); Glucose NEGATIVE (NEGATIVE); Ketones NEGATIVE (NEGATIVE); Leukocyte Esterase NEGATIVE (NEGATIVE); Nitrite NEGATIVE (NEGATIVE); Protein,Urine Dip NEGATIVE (Negative); Specific Gravity 1.023 (1.005-1.025); Urobilinogen NEGATIVE mg/dL (0-1)
[2021-05-15 17:08] LABS: Amphetamine,Urine NEGATIVE (NEGATIVE); Barbiturate,Urine NEGATIVE (NEGATIVE); Benzodiazepine,Urine NEGATIVE (NEGATIVE); Cocaine,Urine NEGATIVE (NEGATIVE); Methadone,Urine NEGATIVE (NEGATIVE); Opiate,Urine NEGATIVE (NEGATIVE); PCP,Urine NEGATIVE (NEGATIVE); THC,Urine NEGATIVE (NEGATIVE)
[2021-05-15 17:49] LABS: ATYPICAL LYMPHS 6 %; BAND 1 % (0.0-2.0); Eosinophil 2 % (0.00-3.0); Lymphocytes 26 % (24-44); Metamyelocyte 2 %; Monocyte 2 % (0.0-12.0); Neutrophils 61 % (36.-66.); Total Cells Counted 100
[2021-05-15 17:50] LABS: Platelet Estimate NORMAL (NORMAL)
[2021-05-15] MEDS ORDERED: Zofran 4 MG/2 ML VIAL IV PRN (21:06)
[2021-05-15] MEDS ORDERED: Senokot-S Tablet PO PRN (21:06)
[2021-05-15] MEDS ORDERED: TYLENOL 325 MG PO PRN (21:06)
[2021-05-15] MEDS ORDERED: MILK OF MAGNESIA 30 ML PO PRN (21:06)
[2021-05-15] MEDS ORDERED: MAALOX ES 30 ML UNIT DOSE PO PRN (21:06)
[2021-05-15] MEDS ORDERED: Cozaar 50 MG PO SCH (22:30)
[2021-05-15] MEDS ORDERED: ZOCOR 20MG PO SCH (22:30)
[2021-05-15] MEDS ORDERED: NORVASC 5 MG PO SCH (22:30)
[2021-05-15] MEDS ORDERED: COREG 12.5 MG PO SCH (22:30)
[2021-05-16 08:18] VITALS: BP 165/98; PULSE 83; O2SAT 96
--- NOTE | 2021-05-16 08:33 | PCM.SSS ---
History of Present Illness - Chief Complaint Chief Complaint: SYNCOPE History of Present Illness: is a 41 year old male with a history of cardiomyopathy, he is followed by Dr Lawson. he was seen 3-4 days ago and his amlodpine was increased from 5mg daily to 5mg bid due to elevated blood pressure, yesterday morning he drank 4-5 beers after getting off of working 3rd shift, he went to bed then woke up and fell when he got out of bed, he does not remember the incident, was brought to ER with no neuro deficits. he has not had any chest pain, no exertional dyspnea, no swelling or other complaints. he feels well today. - Review of Systems Constitutional: No Fever, No Chills Respiratory: No Cough, No Short Of Breath Cardiac: Syncope, No Chest Pain, No Edema, No Palpitations Abdominal/Gastrointestinal: No Abdominal Pain, No Nausea, No Vomiting, No Diarrhea Skin: No Rash Neurological: No Dizziness, No Focal Weakness, No Sensory Changes All Other Systems: Reviewed and Negative Medications & Allergies Home Medications: Home Medication List Aspirin 81 gm Chew [Baby Aspirin 81 mg Chew] 81 mg PO DAILY 06/11/14 [History Confirmed 05/15/21] Carvedilol [Coreg] 25 mg PO BID 06/11/14 [History Confirmed 05/15/21] Digoxin [Lanoxin] 125 mcg PO DAILY 06/11/14 [History Confirmed 05/15/21] Losartan Potassium 100 mg PO HS 06/11/14 [History Confirmed 05/15/21] Pravastatin Sodium 40 mg PO HS 06/11/14 [History Confirmed 05/15/21] Paroxetine HCl 20 mg [Paxil 20 MG] 20 mg PO DAILY 05/15/21 [History Confirmed 05/15/21] Amlodipine Besylate 5 mg [Norvasc 5 mg] 5 mg PO DAILY tablet 05/16/21 [Rx] Allergies/Adverse Reactions: Allergies Allergy/AdvReac Type Severity Reaction Status Date / Time penicillin G Allergy Intermediate Verified 05/15/21 21:22 - Past Medical History Past Medical History: Yes Neurological History: Migraines ENT History: No Pertinent History Cardiac History: Congestive Heart Failure, High Cholesterol, Other Respiratory History: No Pertinent History Endocrine Medical History: No Pertinent History Musculoskelatal History: No Pertinent History GI Medical History: No Pertinent History History: No Pertinent History Pyscho-Social History: Depression Male Reproductive Disorders: No Pertinent History Comment: 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 - Past Surgical History Past Surgical History: Yes Neuro Surgical History: No Pertinent History Cardiac History: Internal Defibrillator, Pacemaker Respiratory Surgery: No Pertinent History GI Surgical History: No Pertinent History Genitourinary Surgical Hx: No Pertinent History Musculskeletal Surgical Hx: No Pertinent History Male Surgical History: No Pertinent History - Social History Smoking Status: Never smoker Exposure to second hand smoke: Yes Alcohol: Daily Drug Use: none - Physical Exam Vital Signs: Vital Signs - 24 hr Temp Pulse Resp BP Pulse Ox 05/16/21 08:00 97.5 F 83 23 165/98 96 05/16/21 04:00 98.0 F 71 18 116/63 94 L 05/16/21 00:00 16 94 L 05/15/21 23:47 98.2 F 75 18 98/55 94 L 05/15/21 21:23 97.6 F 76 18 124/77 97 05/15/21 20:44 95 05/15/21 20:31 78 94/53 97 05/15/21 19:24 73 112/70 96 05/15/21 18:09 80 23 104/70 05/15/21 17:12 78 22 107/67 05/15/21 16:04 72 16 115/78 95 05/15/21 15:33 72 18 114/80 94 L 05/15/21 14:40 70 16 102/67 95 05/15/21 14:23 95 05/15/21 13:47 98.0 F 70 15 137/94 94 L General Appearance: no apparent distress, alert, obese Neurologic Exam: alert, oriented x 3, cooperative Respiratory Exam: normal breath sounds, lungs clear, No respiratory distress Cardiovascular Exam: regular rate/rhythm, normal heart sounds, normal peripheral pulses Gastrointestinal/Abdomen Exam: soft, normal bowel sounds, No tenderness, No mass Extremity Exam: normal inspection, normal range of motion, pelvis stable Skin Exam: normal color, warm, dry, No rash Results - Labs Lab/Micro Results: Lab Results-Last 24 Hours 05/15/21 05/15/21 05/15/21 Range/Units 14:15 14:15 14:15 WBC 12.5 H (4.0-10.5) K/mm3 RBC 5.09 (4.1-5.6) M/mm3 Hgb 15.7 (12.5-18.0) gm/dl Hct 47.3 (42-50) % MCV 92.9 (78-100) fl MCH 30.8 (26-32) pg MCHC 33.2 (32-36) g/dl RDW 13.6 (11.5-14.0) % Plt Count 327 (150-450) K/mm3 MPV 9.9 (7.5-11.0) fl Segmented Neutrophils 61 (36.-66.) % Band Neutrophils 1 (0.0-2.0) % Lymphocytes (Manual) 26 (24-44) % Monocytes (Manual) 2 (0.0-12.0) % Eosinophils (Manual) 2 (0.00-3.0) % Metamyelocytes 2 % Atypical Lymphocytes 6 % Platelet Estimate NORMAL (NORMAL) RBC Morphology NORMAL Sodium 144 (137-145) mmol/L Potassium 4.1 (3.5-5.1) mmol/L Chloride 108 H (98-107) mmol/L Carbon Dioxide 22 (22-30) mmol/L Anion Gap 18.5 H (5-15) MEQ/L BUN 17 (9-20) mg/dL Creatinine 0.98 (0.66-1.25) mg/dL Estimated GFR > 60.0 ML/MIN Glucose 89 (74-106) mg/dL Calcium 9.3 (8.4-10.2) mg/dL Magnesium 2.5 H (1.6-2.3) mg/dL Total Bilirubin 0.40 (0.2-1.3) mg/dL AST 30 (17-59) U/L ALT 41 (0-50) U/L Alkaline Phosphatase 98 (38-126) U/L Troponin I < 0.012 (0.000-0.034) ng/mL Serum Total Protein 8.2 (6.3-8.2) g/dL Albumin 4.6 (3.5-5.0) g/dL Triglycerides (30-150) mg/dL Cholesterol (50-200) mg/dL LDL Cholesterol (30-100) mg/dL HDL Cholesterol (40-60) mg/dL Heart Disease Risk Ratio Urine Color (YELLOW) Urine Appearance (CLEAR) Urine pH (5-6) Ur Specific [place] (1.005-1.025) Urine Protein (Negative) Urine Ketones (NEGATIVE) Urine Blood (0-5) Vishal/ul Urine Nitrite (NEGATIVE) Urine Bilirubin (NEGATIVE) Urine Urobilinogen (0-1) mg/dL Ur Leukocyte Esterase (NEGATIVE) Urine WBC (Auto) (0-5) /HPF Urine RBC (Auto) (0-2) /HPF Urine Culture Reflexed (NO) Urine Glucose (NEGATIVE) mg/dL Digoxin (0.8-1.9) ng/mL Urine Opiates Level (NEGATIVE) Ur Methadone (NEGATIVE) Urine Barbiturates (NEGATIVE) Ur Phencyclidine (PCP) (NEGATIVE) Urine Amphetamine (NEGATIVE) U Benzodiazepine Level (NEGATIVE) Urine Cocaine (NEGATIVE) Urine Marijuana (THC) (NEGATIVE) Ethyl Alcohol 226 H (0-10) mg/dL SARS-CoV-2 (PCR) (NEGATIVE) 05/15/21 05/15/21 05/15/21 Range/Units 14:15 16:15 16:15 WBC (4.0-10.5) K/mm3 RBC (4.1-5.6) M/mm3 Hgb (12.5-18.0) gm/dl Hct (42-50) % MCV (78-100) fl MCH (26-32) pg MCHC (32-36) g/dl RDW (11.5-14.0) % Plt Count (150-450) K/mm3 MPV (7.5-11.0) fl Segmented Neutrophils (36.-66.) % Band Neutrophils (0.0-2.0) % Lymphocytes (Manual) (24-44) % Monocytes (Manual) (0.0-12.0) % Eosinophils (Manual) (0.00-3.0) % Metamyelocytes % Atypical Lymphocytes % Platelet Estimate (NORMAL) RBC Morphology Sodium (137-145) mmol/L Potassium (3.5-5.1) mmol/L Chloride (98-107) mmol/L Carbon Dioxide (22-30) mmol/L Anion Gap (5-15) MEQ/L BUN (9-20) mg/dL Creatinine (0.66-1.25) mg/dL Estimated GFR ML/MIN Glucose (74-106) mg/dL Calcium (8.4-10.2) mg/dL Magnesium (1.6-2.3) mg/dL Total Bilirubin (0.2-1.3) mg/dL AST (17-59) U/L ALT (0-50) U/L Alkaline Phosphatase (38-126) U/L Troponin I (0.000-0.034) ng/mL Serum Total Protein (6.3-8.2) g/dL Albumin (3.5-5.0) g/dL Triglycerides (30-150) mg/dL Cholesterol (50-200) mg/dL LDL Cholesterol (30-100) mg/dL HDL Cholesterol (40-60) mg/dL Heart Disease Risk Ratio Urine Color STRAW (YELLOW) Urine Appearance CLEAR (CLEAR) Urine pH 6.0 (5-6) Ur Specific [place] 1.023 (1.005-1.025) Urine Protein NEGATIVE (Negative) Urine Ketones NEGATIVE (NEGATIVE) Urine Blood NEGATIVE (0-5) Vishal/ul Urine Nitrite NEGATIVE (NEGATIVE) Urine Bilirubin NEGATIVE (NEGATIVE) Urine Urobilinogen NEGATIVE (0-1) mg/dL Ur Leukocyte Esterase NEGATIVE (NEGATIVE) Urine WBC (Auto) NONE (0-5) /HPF Urine RBC (Auto) NONE (0-2) /HPF Urine Culture Reflexed NO (NO) Urine Glucose NEGATIVE (NEGATIVE) mg/dL Digoxin 0.4 L (0.8-1.9) ng/mL Urine Opiates Level NEGATIVE (NEGATIVE) Ur Methadone NEGATIVE (NEGATIVE) Urine Barbiturates NEGATIVE (NEGATIVE) Ur Phencyclidine (PCP) NEGATIVE (NEGATIVE) Urine Amphetamine NEGATIVE (NEGATIVE) U Benzodiazepine Level NEGATIVE (NEGATIVE) Urine Cocaine NEGATIVE (NEGATIVE) Urine Marijuana (THC) NEGATIVE (NEGATIVE) Ethyl Alcohol (0-10) mg/dL SARS-CoV-2 (PCR) (NEGATIVE) 05/15/21 05/15/21 05/15/21 Range/Units 18:12 19:41 20:36 WBC (4.0-10.5) K/mm3 RBC (4.1-5.6) M/mm3 Hgb (12.5-18.0) gm/dl Hct (42-50) % MCV (78-100) fl MCH (26-32) pg MCHC (32-36) g/dl RDW (11.5-14.0) % Plt Count (150-450) K/mm3 MPV (7.5-11.0) fl Segmented Neutrophils (36.-66.) % Band Neutrophils (0.0-2.0) % Lymphocytes (Manual) (24-44) % Monocytes (Manual) (0.0-12.0) % Eosinophils (Manual) (0.00-3.0) % Metamyelocytes % Atypical Lymphocytes % Platelet Estimate (NORMAL) RBC Morphology Sodium (137-145) mmol/L Potassium (3.5-5.1) mmol/L Chloride (98-107) mmol/L Carbon Dioxide (22-30) mmol/L Anion Gap (5-15) MEQ/L BUN (9-20) mg/dL Creatinine (0.66-1.25) mg/dL Estimated GFR ML/MIN Glucose (74-106) mg/dL Calcium (8.4-10.2) mg/dL Magnesium (1.6-2.3) mg/dL Total Bilirubin (0.2-1.3) mg/dL AST (17-59) U/L ALT (0-50) U/L Alkaline Phosphatase (38-126) U/L Troponin I < 0.012 < 0.012 (0.000-0.034) ng/mL Serum Total Protein (6.3-8.2) g/dL Albumin (3.5-5.0) g/dL Triglycerides (30-150) mg/dL Cholesterol (50-200) mg/dL LDL Cholesterol (30-100) mg/dL HDL Cholesterol (40-60) mg/dL Heart Disease Risk Ratio Urine Color (YELLOW) Urine Appearance (CLEAR) Urine pH (5-6) Ur Specific [place] (1.005-1.025) Urine Protein (Negative) Urine Ketones (NEGATIVE) Urine Blood (0-5) Vishal/ul Urine Nitrite (NEGATIVE) Urine Bilirubin (NEGATIVE) Urine Urobilinogen (0-1) mg/dL Ur Leukocyte Esterase (NEGATIVE) Urine WBC (Auto) (0-5) /HPF Urine RBC (Auto) (0-2) /HPF Urine Culture Reflexed (NO) Urine Glucose (NEGATIVE) mg/dL Digoxin (0.8-1.9) ng/mL Urine Opiates Level (NEGATIVE) Ur Methadone (NEGATIVE) Urine Barbiturates (NEGATIVE) Ur Phencyclidine (PCP) (NEGATIVE) Urine Amphetamine (NEGATIVE) U Benzodiazepine Level (NEGATIVE) Urine Cocaine (NEGATIVE) Urine Marijuana (THC) (NEGATIVE) Ethyl Alcohol (0-10) mg/dL SARS-CoV-2 (PCR) NEGATIVE (NEGATIVE) 05/15/21 05/16/21 05/16/21 Range/Units 23:30 03:31 03:31 WBC (4.0-10.5) K/mm3 RBC (4.1-5.6) M/mm3 Hgb (12.5-18.0) gm/dl Hct (42-50) % MCV (78-100) fl MCH (26-32) pg MCHC (32-36) g/dl RDW (11.5-14.0) % Plt Count (150-450) K/mm3 MPV (7.5-11.0) fl Segmented Neutrophils (36.-66.) % Band Neutrophils (0.0-2.0) % Lymphocytes (Manual) (24-44) % Monocytes (Manual) (0.0-12.0) % Eosinophils (Manual) (0.00-3.0) % Metamyelocytes % Atypical Lymphocytes % Platelet Estimate (NORMAL) RBC Morphology Sodium (137-145) mmol/L Potassium (3.5-5.1) mmol/L Chloride (98-107) mmol/L Carbon Dioxide (22-30) mmol/L Anion Gap (5-15) MEQ/L BUN (9-20) mg/dL Creatinine (0.66-1.25) mg/dL Estimated GFR ML/MIN Glucose (74-106) mg/dL Calcium (8.4-10.2) mg/dL Magnesium (1.6-2.3) mg/dL Total Bilirubin (0.2-1.3) mg/dL AST (17-59) U/L ALT (0-50) U/L Alkaline Phosphatase (38-126) U/L Troponin I < 0.012 < 0.012 (0.000-0.034) ng/mL Serum Total Protein (6.3-8.2) g/dL Albumin (3.5-5.0) g/dL Triglycerides 102 (30-150) mg/dL Cholesterol 199 (50-200) mg/dL LDL Cholesterol 131 H (30-100) mg/dL HDL Cholesterol 50 (40-60) mg/dL Heart Disease Risk Ratio 4.0 Urine Color (YELLOW) Urine Appearance (CLEAR) Urine pH (5-6) Ur Specific [place] (1.005-1.025) Urine Protein (Negative) Urine Ketones (NEGATIVE) Urine Blood (0-5) Vishal/ul Urine Nitrite (NEGATIVE) Urine Bilirubin (NEGATIVE) Urine Urobilinogen (0-1) mg/dL Ur Leukocyte Esterase (NEGATIVE) Urine WBC (Auto) (0-5) /HPF Urine RBC (Auto) (0-2) /HPF Urine Culture Reflexed (NO) Urine Glucose (NEGATIVE) mg/dL Digoxin (0.8-1.9) ng/mL Urine Opiates Level (NEGATIVE) Ur Methadone (NEGATIVE) Urine Barbiturates (NEGATIVE) Ur Phencyclidine (PCP) (NEGATIVE) Urine Amphetamine (NEGATIVE) U Benzodiazepine Level (NEGATIVE) Urine Cocaine (NEGATIVE) Urine Marijuana (THC) (NEGATIVE) Ethyl Alcohol (0-10) mg/dL SARS-CoV-2 (PCR) (NEGATIVE) - Radiology Impressions Radiology Exams & Impressions: Radiology Procedures Category Date Time Status CHEST 1 VIEW (PORTABLE) Stat Exams 05/15/21 14:[address] ANGIOGRAPHY NECK [CT] Routine Exams 05/15/21 14:41 Completed CTA HEAD W AND/OR WO CONTRAST [CT] Stat Exams 05/15/21 14:34 Completed HEAD WITHOUT CONTRAST [CT] Routine Exams 05/15/21 16:19 Taken - Other Procedures and Tests Respiratory Therapy 05/16/21 05:00 EKG Q8HX2,QAMX3,PRN 05/17/21 05:00 EKG ONCE 05/18/21 05:00 EKG ONCE Assessment/Plan (1) Syncope and collapse Current Visit: Yes Status: Acute Assessment & Plan: nothing on telemetry, [place] ruled out and patient has no symptoms. bp was low overnight c/w orthostasis and history of increase in amlodipine just prior to this incident fits, will cut his amlodipine back to 5mg once daily. has an appt to see Dr Lawson on Wednesday Code(s): R55 - SYNCOPE AND COLLAPSE (2) Orthostatic hypotension Current Visit: Yes Status: Acute Code(s): I95.1 - ORTHOSTATIC HYPOTENSION (3) Alcohol intoxication Current Visit: Yes Status: Acute (4) Dilated cardiomyopathy Current Visit: No Status: Acute Code(s): I42.0 - DILATED CARDIOMYOPATHY Hospital Summary - Vitals & Intake/Output Vital Signs: Vital Signs Temperature 97.5 F 05/16/21 08:00 Pulse Rate 83 05/16/21 08:00 Respiratory Rate 23 05/16/21 08:00 Blood Pressure 165/98 05/16/21 08:00 O2 Sat by Pulse Oximetry 96 05/16/21 08:00 Intake & Output: Intake & Output 05/13/21 05/14/21 05/15/21 05/16/21 11:59 11:59 11:59 11:59 Intake Total 480 Balance 480 Weight 134 kg - Lab Result Diagrams: 05/15/21 14:15 05/15/21 14:15 Lab Results-Last 24 Hrs: Lab Results-Last 24 Hours 05/15/21 05/15/21 05/15/21 Range/Units 14:15 14:15 14:15 WBC 12.5 H (4.0-10.5) K/mm3 RBC 5.09 (4.1-5.6) M/mm3 Hgb 15.7 (12.5-18.0) gm/dl Hct 47.3 (42-50) % MCV 92.9 (78-100) fl MCH 30.8 (26-32) pg MCHC 33.2 (32-36) g/dl RDW 13.6 (11.5-14.0) % Plt Count 327 (150-450) K/mm3 MPV 9.9 (7.5-11.0) fl Segmented Neutrophils 61 (36.-66.) % Band Neutrophils 1 (0.0-2.0) % Lymphocytes (Manual) 26 (24-44) % Monocytes (Manual) 2 (0.0-12.0) % Eosinophils (Manual) 2 (0.00-3.0) % Metamyelocytes 2 % Atypical Lymphocytes 6 % Platelet Estimate NORMAL (NORMAL) RBC Morphology NORMAL Sodium 144 (137-145) mmol/L Potassium 4.1 (3.5-5.1) mmol/L Chloride 108 H (98-107) mmol/L Carbon Dioxide 22 (22-30) mmol/L Anion Gap 18.5 H (5-15) MEQ/L BUN 17 (9-20) mg/dL Creatinine 0.98 (0.66-1.25) mg/dL Estimated GFR > 60.0 ML/MIN Glucose 89 (74-106) mg/dL Calcium 9.3 (8.4-10.2) mg/dL Magnesium 2.5 H (1.6-2.3) mg/dL Total Bilirubin 0.40 (0.2-1.3) mg/dL AST 30 (17-59) U/L ALT 41 (0-50) U/L Alkaline Phosphatase 98 (38-126) U/L Troponin I < 0.012 (0.000-0.034) ng/mL Serum Total Protein 8.2 (6.3-8.2) g/dL Albumin 4.6 (3.5-5.0) g/dL Triglycerides (30-150) mg/dL Cholesterol (50-200) mg/dL LDL Cholesterol (30-100) mg/dL HDL Cholesterol (40-60) mg/dL Heart Disease Risk Ratio Urine Color (YELLOW) Urine Appearance (CLEAR) Urine pH (5-6) Ur Specific [place] (1.005-1.025) Urine Protein (Negative) Urine Ketones (NEGATIVE) Urine Blood (0-5) Vishal/ul Urine Nitrite (NEGATIVE) Urine Bilirubin (NEGATIVE) Urine Urobilinogen (0-1) mg/dL Ur Leukocyte Esterase (NEGATIVE) Urine WBC (Auto) (0-5) /HPF Urine RBC (Auto) (0-2) /HPF Urine Culture Reflexed (NO) Urine Glucose (NEGATIVE) mg/dL Digoxin (0.8-1.9) ng/mL Urine Opiates Level (NEGATIVE) Ur Methadone (NEGATIVE) Urine Barbiturates (NEGATIVE) Ur Phencyclidine (PCP) (NEGATIVE) Urine Amphetamine (NEGATIVE) U Benzodiazepine Level (NEGATIVE) Urine Cocaine (NEGATIVE) Urine Marijuana (THC) (NEGATIVE) Ethyl Alcohol 226 H (0-10) mg/dL SARS-CoV-2 (PCR) (NEGATIVE) 05/15/21 05/15/21 05/15/21 Range/Units 14:15 16:15 16:15 WBC (4.0-10.5) K/mm3 RBC (4.1-5.6) M/mm3 Hgb (12.5-18.0) gm/dl Hct (42-50) % MCV (78-100) fl MCH (26-32) pg MCHC (32-36) g/dl RDW (11.5-14.0) % Plt Count (150-450) K/mm3 MPV (7.5-11.0) fl Segmented Neutrophils (36.-66.) % Band Neutrophils (0.0-2.0) % Lymphocytes (Manual) (24-44) % Monocytes (Manual) (0.0-12.0) % Eosinophils (Manual) (0.00-3.0) % Metamyelocytes % Atypical Lymphocytes % Platelet Estimate (NORMAL) RBC Morphology Sodium (137-145) mmol/L Potassium (3.5-5.1) mmol/L Chloride (98-107) mmol/L Carbon Dioxide (22-30) mmol/L Anion Gap (5-15) MEQ/L BUN (9-20) mg/dL Creatinine (0.66-1.25) mg/dL Estimated GFR ML/MIN Glucose (74-106) mg/dL Calcium (8.4-10.2) mg/dL Magnesium (1.6-2.3) mg/dL Total Bilirubin (0.2-1.3) mg/dL AST (17-59) U/L ALT (0-50) U/L Alkaline Phosphatase (38-126) U/L Troponin I (0.000-0.034) ng/mL Serum Total Protein (6.3-8.2) g/dL Albumin (3.5-5.0) g/dL Triglycerides (30-150) mg/dL Cholesterol (50-200) mg/dL LDL Cholesterol (30-100) mg/dL HDL Cholesterol (40-60) mg/dL Heart Disease Risk Ratio Urine Color STRAW (YELLOW) Urine Appearance CLEAR (CLEAR) Urine pH 6.0 (5-6) Ur Specific [place] 1.023 (1.005-1.025) Urine Protein NEGATIVE (Negative) Urine Ketones NEGATIVE (NEGATIVE) Urine Blood NEGATIVE (0-5) Vishal/ul Urine Nitrite NEGATIVE (NEGATIVE) Urine Bilirubin NEGATIVE (NEGATIVE) Urine Urobilinogen NEGATIVE (0-1) mg/dL Ur Leukocyte Esterase NEGATIVE (NEGATIVE) Urine WBC (Auto) NONE (0-5) /HPF Urine RBC (Auto) NONE (0-2) /HPF Urine Culture Reflexed NO (NO) Urine Glucose NEGATIVE (NEGATIVE) mg/dL Digoxin 0.4 L (0.8-1.9) ng/mL Urine Opiates Level NEGATIVE (NEGATIVE) Ur Methadone NEGATIVE (NEGATIVE) Urine Barbiturates NEGATIVE (NEGATIVE) Ur Phencyclidine (PCP) NEGATIVE (NEGATIVE) Urine Amphetamine NEGATIVE (NEGATIVE) U Benzodiazepine Level NEGATIVE (NEGATIVE) Urine Cocaine NEGATIVE (NEGATIVE) Urine Marijuana (THC) NEGATIVE (NEGATIVE) Ethyl Alcohol (0-10) mg/dL SARS-CoV-2 (PCR) (NEGATIVE) 05/15/21 05/15/21 05/15/21 Range/Units 18:12 19:41 20:36 WBC (4.0-10.5) K/mm3 RBC (4.1-5.6) M/mm3 Hgb (12.5-18.0) gm/dl Hct (42-50) % MCV (78-100) fl MCH (26-32) pg MCHC (32-36) g/dl RDW (11.5-14.0) % Plt Count (150-450) K/mm3 MPV (7.5-11.0) fl Segmented Neutrophils (36.-66.) % Band Neutrophils (0.0-2.0) % Lymphocytes (Manual) (24-44) % Monocytes (Manual) (0.0-12.0) % Eosinophils (Manual) (0.00-3.0) % Metamyelocytes % Atypical Lymphocytes % Platelet Estimate (NORMAL) RBC Morphology Sodium (137-145) mmol/L Potassium (3.5-5.1) mmol/L Chloride (98-107) mmol/L Carbon Dioxide (22-30) mmol/L Anion Gap (5-15) MEQ/L BUN (9-20) mg/dL Creatinine (0.66-1.25) mg/dL Estimated GFR ML/MIN Glucose (74-106) mg/dL Calcium (8.4-10.2) mg/dL Magnesium (1.6-2.3) mg/dL Total Bilirubin (0.2-1.3) mg/dL AST (17-59) U/L ALT (0-50) U/L Alkaline Phosphatase (38-126) U/L Troponin I < 0.012 < 0.012 (0.000-0.034) ng/mL Serum Total Protein (6.3-8.2) g/dL Albumin (3.5-5.0) g/dL Triglycerides (30-150) mg/dL Cholesterol (50-200) mg/dL LDL Cholesterol (30-100) mg/dL HDL Cholesterol (40-60) mg/dL Heart Disease Risk Ratio Urine Color (YELLOW) Urine Appearance (CLEAR) Urine pH (5-6) Ur Specific [place] (1.005-1.025) Urine Protein (Negative) Urine Ketones (NEGATIVE) Urine Blood (0-5) Vishal/ul Urine Nitrite (NEGATIVE) Urine Bilirubin (NEGATIVE) Urine Urobilinogen (0-1) mg/dL Ur Leukocyte Esterase (NEGATIVE) Urine WBC (Auto) (0-5) /HPF Urine RBC (Auto) (0-2) /HPF Urine Culture Reflexed (NO) Urine Glucose (NEGATIVE) mg/dL Digoxin (0.8-1.9) ng/mL Urine Opiates Level (NEGATIVE) Ur Methadone (NEGATIVE) Urine Barbiturates (NEGATIVE) Ur Phencyclidine (PCP) (NEGATIVE) Urine Amphetamine (NEGATIVE) U Benzodiazepine Level (NEGATIVE) Urine Cocaine (NEGATIVE) Urine Marijuana (THC) (NEGATIVE) Ethyl Alcohol (0-10) mg/dL SARS-CoV-2 (PCR) NEGATIVE (NEGATIVE) 05/15/21 05/16/21 05/16/21 Range/Units 23:30 03:31 03:31 WBC (4.0-10.5) K/mm3 RBC (4.1-5.6) M/mm3 Hgb (12.5-18.0) gm/dl Hct (42-50) % MCV (78-100) fl MCH (26-32) pg MCHC (32-36) g/dl RDW (11.5-14.0) % Plt Count (150-450) K/mm3 MPV (7.5-11.0) fl Segmented Neutrophils (36.-66.) % Band Neutrophils (0.0-2.0) % Lymphocytes (Manual) (24-44) % Monocytes (Manual) (0.0-12.0) % Eosinophils (Manual) (0.00-3.0) % Metamyelocytes % Atypical Lymphocytes % Platelet Estimate (NORMAL) RBC Morphology Sodium (137-145) mmol/L Potassium (3.5-5.1) mmol/L Chloride (98-107) mmol/L Carbon Dioxide (22-30) mmol/L Anion Gap (5-15) MEQ/L BUN (9-20) mg/dL Creatinine (0.66-1.25) mg/dL Estimated GFR ML/MIN Glucose (74-106) mg/dL Calcium (8.4-10.2) mg/dL Magnesium (1.6-2.3) mg/dL Total Bilirubin (0.2-1.3) mg/dL AST (17-59) U/L ALT (0-50) U/L Alkaline Phosphatase (38-126) U/L Troponin I < 0.012 < 0.012 (0.000-0.034) ng/mL Serum Total Protein (6.3-8.2) g/dL Albumin (3.5-5.0) g/dL Triglycerides 102 (30-150) mg/dL Cholesterol 199 (50-200) mg/dL LDL Cholesterol 131 H (30-100) mg/dL HDL Cholesterol 50 (40-60) mg/dL Heart Disease Risk Ratio 4.0 Urine Color (YELLOW) Urine Appearance (CLEAR) Urine pH (5-6) Ur Specific [place] (1.005-1.025) Urine Protein (Negative) Urine Ketones (NEGATIVE) Urine Blood (0-5) Vishal/ul Urine Nitrite (NEGATIVE) Urine Bilirubin (NEGATIVE) Urine Urobilinogen (0-1) mg/dL Ur Leukocyte Esterase (NEGATIVE) Urine WBC (Auto) (0-5) /HPF Urine RBC (Auto) (0-2) /HPF Urine Culture Reflexed (NO) Urine Glucose (NEGATIVE) mg/dL Digoxin (0.8-1.9) ng/mL Urine Opiates Level (NEGATIVE) Ur Methadone (NEGATIVE) Urine Barbiturates (NEGATIVE) Ur Phencyclidine (PCP) (NEGATIVE) Urine Amphetamine (NEGATIVE) U Benzodiazepine Level (NEGATIVE) Urine Cocaine (NEGATIVE) Urine Marijuana (THC) (NEGATIVE) Ethyl Alcohol (0-10) mg/dL SARS-CoV-2 (PCR) (NEGATIVE) - Radiology Exams Ordered Rad Exams-Entire Visit: Radiology Procedures Category Date Time Status CHEST 1 VIEW (PORTABLE) Stat Exams 05/15/21 14:[address] ANGIOGRAPHY NECK [CT] Routine Exams 05/15/21 14:41 Completed CTA HEAD W AND/OR WO CONTRAST [CT] Stat Exams 05/15/21 14:34 Completed HEAD WITHOUT CONTRAST [CT] Routine Exams 05/15/21 16:19 Taken - Procedures and Test Procedures and Tests throughout Hospitalization: Therapy Orders & Screens 05/15/21 23:15 EKG ONCE Comment: Diagnosis: SYNCOPE 05/16/21 05:00 EKG ONCE Comment: Diagnosis: SYNCOPE EKG [id number],QAMX3,PRN Comment: 05/17/21 05:00 EKG ONCE Comment: Diagnosis: SYNCOPE 05/18/21 05:00 EKG ONCE Comment: Diagnosis: SYNCOPE - Discharge Disposition: Home, Self-Care Condition: Stable Prescriptions: New Amlodipine Besylate 5 mg [Norvasc 5 mg] 5 mg PO DAILY tablet Continue Aspirin 81 gm Chew [Baby Aspirin 81 mg Chew] 81 mg PO DAILY Losartan Potassium 100 mg PO HS Carvedilol [Coreg] 25 mg PO BID Pravastatin Sodium 40 mg PO HS Digoxin [Lanoxin] 125 mcg PO DAILY Paroxetine HCl 20 mg [Paxil 20 MG] 20 mg PO DAILY Discontinued Amlodipine Besylate 5 mg [Norvasc 5 mg] 5 mg PO BID Additional Instructions: drink plenty of fluids and rest the next couple of days, avoid alcohol. f/u with Dr Lawson as scheduled on Wednesday, return for any new problems or concerns. Follow up with: BLUE ROMERO NP [Primary Care Provider] -
[2021-05-16] MEDS ORDERED: Lanoxin 0.125MG TABLET PO SCH (10:00)
[2021-05-16] MEDS ORDERED: ECOTRIN 81 MG PO SCH (10:00)
[2021-05-16] MEDS ORDERED: Paxil 20 MG PO SCH (10:00)
--- NOTE | 2021-05-16 10:56 | XRAY ---
Indication: Stroke. Multiple contiguous axial images obtained through the head without contrast. Comparison: November 10, 2015. Normal appearing brain parenchyma, ventricles, and bony calvarium. Visualized paranasal sinuses and mastoid air cells are clear. CTA neck and CTA head reported separately. Impression: Continued normal CT head without contrast exam.
== END 2021-05-16 09:20 | disposition home or self-care (01) ==
LOC: ED 13:44 → MED SURG 21:01
PROVIDERS: ADMIT Family Medicine; ATTEND Family Medicine
DX: R55 Syncope and collapse (principal); R41.0 Disorientation, unspecified; W19.XXXA Unspecified fall, initial encounter; I95.1 Orthostatic hypotension; I42.0 Dilated cardiomyopathy; F10.929 Alcohol use, unspecified with intoxication, unspecified; Z20.822 Contact with and (suspected) exposure to COVID-19; Z79.899 Other long term (current) drug therapy; Z79.01 Long term (current) use of anticoagulants
CPT/HCPCS: 36000; 36415; 70450; 70496; 70498; 71045; 80053; 80061; 80162; 80307; 81001; 83721; 83735; 84484; 85025; 93005; 93041; 93268; 94760; 96360; 99285; G0378; U0003; A9270-GY; G0480